=== PATIENT | female | born 1955 | race Caucasian/White ===

== ENCOUNTER 2017-01-08 09:19 | Emergency (ER) | payer OTHER ==
[~2017-01-08] VITALS: Ht 154.9 cm; Wt 84.1 kg
[2017-01-08 10:18] LABS: BASOPHILS % (AUTO) 0.8 % (0.0-2.0); EOSINOPHILS % (AUTO) 2.3 % (1.0-6.0); HEMATOCRIT 39.4 % (36-46); HEMOGLOBIN 12.6 g/dL (12.0-16.0); LYMPHOCYTES # (AUTO) 2.5 K/uL (1.0-4.8); LYMPHOCYTES % (AUTO) 41.1 % (22.0-44.0); MEAN CORPUSCULAR HEMOGLOBIN 24.3 pg (26.0-34.0); MEAN CORPUSCULAR HGB CONC 31.9 G/dL (31.0-37.0); MEAN CORPUSCULAR VOLUME 76 fL (80-100); MONOCYTES # (AUTO) 0.5 K/uL (0.1-1.0); MONOCYTES % (AUTO) 7.8 % (2.0-9.0); NEUTROPHILS # (AUTO) 2.9 K/uL (1.8-7.7); PLATELET COUNT (AUTO) 198 K/uL (150-450); RED BLOOD CELL COUNT(AUTO) 5.17 MIL/uL (4.00-5.20); RED CELL DISTRIBUTION WIDTH 18.6 % (11.5-14.5); WHITE BLOOD COUNT (AUTO) 6.1 K/uL (4.5-11.0)
[2017-01-08 10:20] LABS: RBC MORPHOLOGY COMMENT ABNORMAL RBC MORPH
[2017-01-08] MEDS ORDERED: DILTIAZEM HCL 5 MG/ML 5 ML VIAL IVP ONE (10:30)
[2017-01-08 10:33] LABS: ANION GAP 10 mmol/L (8-16); CALCIUM, TOTAL 9.4 mg/dL (8.8-10.5); CARBON DIOXIDE 29 mmol/L (22-29); CHLORIDE 104 mmol/L (98-107); CREATININE 0.52 mg/dL (0.60-1.30); GLOMERULAR FILTR. RATE CALC > 60 mL/min (>60); POTASSIUM 3.9 mmol/L (3.5-5.1); SODIUM SERUM 143 mmol/L (136-145); UREA NITROGEN, BLOOD 17 mg/dL (7-18)
[2017-01-08 10:39] LABS: ALANINE AMINOTRANSFERASE 24 U/L (12-78); ALBUMIN 4.2 g/dL (3.4-5.0); ASPARTATE AMINOTRANSFERASE 21 U/L (15-37); BILIRUBIN,TOTAL 0.5 mg/dL (0.1-1.0)
[2017-01-08 14:35] VITALS: BP 127/75
== END 2017-01-08 14:45 | disposition home or self-care (01) ==
LOC: EMS 09:22
DX: I48.91 Unspecified atrial fibrillation (principal); Z91.041 Radiographic dye allergy status
CPT/HCPCS: 93005; 99285; J3490

== ENCOUNTER 2017-01-28 15:34 | Emergency (ER) | payer OTHER ==
[~2017-01-28] VITALS: Ht 157.5 cm; Wt 80.9 kg
[2017-01-28] MEDS ORDERED: SODIUM CHLORIDE 0.9% 1,000 ML IV ONE (16:00)
[2017-01-28] MEDS ORDERED: ADENOSINE 3 MG/ML 2 ML VIAL IVP ONE (16:00)
[2017-01-28 16:05] LABS: BASOPHILS # (AUTO) 0.04 K/uL (0.00-0.20); BASOPHILS % (AUTO) 0.5 % (0.0-2.0); EOSINOPHILS # (AUTO) 0.11 K/uL (0.00-0.70); EOSINOPHILS % (AUTO) 1.33 % (1.0-6.0); HEMATOCRIT 35.4 % (36-46); LYMPHOCYTES # (AUTO) 2.3 K/uL (1.0-4.8); LYMPHOCYTES % (AUTO) 28.1 % (22.0-44.0); MEAN CORPUSCULAR HEMOGLOBIN 23.9 pg (26.0-34.0); MEAN CORPUSCULAR VOLUME 77 fL (80-100); MONOCYTES # (AUTO) 0.6 K/uL (0.1-1.0); MONOCYTES % (AUTO) 7.4 % (2.0-9.0); NEUTROPHILS % (AUTO) 62.6 % (40.0-70.0); PLATELET COUNT (AUTO) 172 K/uL (150-450); RED BLOOD CELL COUNT(AUTO) 4.59 MIL/uL (4.00-5.20); RED CELL DISTRIBUTION WIDTH 17.7 % (11.5-14.5)
[2017-01-28] MEDS ORDERED: METF500T4 PO (16:11)
[2017-01-28] MEDS ORDERED: VITAD1000 PO (16:11)
[2017-01-28] MEDS ORDERED: METO50TA12 PO (16:11)
[2017-01-28] MEDS ORDERED: LEVO100 PO (16:11)
[2017-01-28] MEDS ORDERED: APIX5TAB PO (16:11)
[2017-01-28] MEDS ORDERED: ATOR10TA84 PO (16:11)
[2017-01-28] MEDS ORDERED: NITR.4 SL (16:11)
[2017-01-28] MEDS ORDERED: MAGN250T29 PO (16:11)
[2017-01-28] MEDS ORDERED: CALCIUM CARBONATE PO (16:11)
[2017-01-28] MEDS ORDERED: DILTIAZEM HCL 5 MG/ML 5 ML VIAL IVP ONE ×2 (16:21→16:30)
[2017-01-28 16:24] LABS: ANION GAP 11 mmol/L (8-16); CALCIUM, TOTAL 9.1 mg/dL (8.8-10.5); CARBON DIOXIDE 26 mmol/L (22-29); CHLORIDE 107 mmol/L (98-107); CREATININE 0.66 mg/dL (0.60-1.30); GLOMERULAR FILTR. RATE CALC > 60 mL/min (>60); POTASSIUM 3.7 mmol/L (3.5-5.1); SODIUM SERUM 144 mmol/L (136-145); UREA NITROGEN, BLOOD 21 mg/dL (7-18)
[2017-01-28] MEDS ORDERED: CALC-916 PO (16:28)
[2017-01-28 16:30] LABS: ALANINE AMINOTRANSFERASE 20 U/L (12-78); ALBUMIN 3.7 g/dL (3.4-5.0); ASPARTATE AMINOTRANSFERASE 18 U/L (15-37); BILIRUBIN,TOTAL 0.3 mg/dL (0.1-1.0); TOTAL PROTEIN, SERUM 7.1 g/dL (6.4-8.2)
[2017-01-28] MEDS ORDERED: DiphenhydrAMINE HCL 50 MG/ML VIAL IM ONE (16:30)
[2017-01-28] MEDS ORDERED: LORazepam 2 MG/ML VIAL IM ONE (16:30)
[2017-01-28] MEDS ORDERED: HALOPERIDOL LACTATE 5 MG/ML VIAL IM ONE (16:30)
[2017-01-28] MEDS ORDERED: ASPIRIN 81 MG CHEWABLE TABLET PO ONE (17:00)
[2017-01-28 17:14] LABS: RBC MORPHOLOGY COMMENT ABNORMAL RBC MORPH
[2017-01-28 20:36] VITALS: BP 123/72
== END 2017-01-28 20:37 | disposition home or self-care (01) ==
LOC: EMS 15:36
DX: I47.1 Supraventricular tachycardia (principal); M54.2 Cervicalgia; Z91.041 Radiographic dye allergy status
CPT/HCPCS: 36415; 71010; 80053; 82948; 82962; 84484; 85025; 93005; 96361; 96374; 96375; 99285; J0153; J3490; J7030

== ENCOUNTER 2017-02-28 17:36 | Emergency (ER) | payer OTHER ==
[~2017-02-28] VITALS: Ht 154.9 cm; Wt 81.5 kg
[~2017-02-28 17:36] MED LIST: APIX5TAB PO; ATOR10TA84 PO; CALC-916 PO; LEVO100 PO; MAGN250T29 PO; METF500T4 PO; METO-558 PO; NITR.4 SL; VITAD1000 PO
[2017-02-28 17:57] LABS: GLUCOSE,POINT OF CARE 140 MG/DL (70-110)
[2017-02-28 18:03] LABS: BASOPHILS % (AUTO) 0.5 % (0.0-2.0); EOSINOPHILS % (AUTO) 0.2 % (1.0-6.0); HEMATOCRIT 37.3 % (36-46); HEMOGLOBIN 11.9 g/dL (12.0-16.0); LYMPHOCYTES % (AUTO) 23.7 % (22.0-44.0); MEAN CORPUSCULAR HEMOGLOBIN 24.4 pg (26.0-34.0); MEAN CORPUSCULAR HGB CONC 31.9 G/dL (31.0-37.0); MEAN CORPUSCULAR VOLUME 77 fL (80-100); MONOCYTES # (AUTO) 0.6 K/uL (0.1-1.0); MONOCYTES % (AUTO) 7.2 % (2.0-9.0); NEUTROPHILS # (AUTO) 5.9 K/uL (1.8-7.7); NEUTROPHILS % (AUTO) 68.4 % (40.0-70.0); PLATELET COUNT (AUTO) 198 K/uL (150-450); RED BLOOD CELL COUNT(AUTO) 4.86 MIL/uL (4.00-5.20); RED CELL DISTRIBUTION WIDTH 19.3 % (11.5-14.5); WHITE BLOOD COUNT (AUTO) 8.6 K/uL (4.5-11.0)
[2017-02-28 18:16] LABS: ANION GAP 11 mmol/L (8-16); CALCIUM, TOTAL 8.9 mg/dL (8.8-10.5); CARBON DIOXIDE 27 mmol/L (22-29); CHLORIDE 104 mmol/L (98-107); CREATININE 0.69 mg/dL (0.60-1.30); GLOMERULAR FILTR. RATE CALC > 60 mL/min (>60); POTASSIUM 3.7 mmol/L (3.5-5.1); SODIUM SERUM 142 mmol/L (136-145); UREA NITROGEN, BLOOD 20 mg/dL (7-18)
[2017-02-28 18:21] LABS: ALANINE AMINOTRANSFERASE 18 U/L (12-78); ALBUMIN 4.2 g/dL (3.4-5.0); ASPARTATE AMINOTRANSFERASE 14 U/L (15-37); BILIRUBIN,TOTAL 0.3 mg/dL (0.1-1.0); TOTAL PROTEIN, SERUM 7.9 g/dL (6.4-8.2)
[2017-02-28 18:28] LABS: B-TYPE NATRIURETIC PEPTIDE 89 pg/mL (0-100)
[2017-02-28 18:48] LABS: RBC MORPHOLOGY COMMENT ABNORMAL RBC MORPH
[2017-02-28 20:27] VITALS: BP 133/78
== END 2017-02-28 20:56 | disposition home or self-care (01) ==
LOC: EMS 17:39
DX: R07.89 Other chest pain (principal); R00.2 Palpitations; E11.9 Type 2 diabetes mellitus without complications; I47.1 Supraventricular tachycardia; I48.91 Unspecified atrial fibrillation; E78.00 Pure hypercholesterolemia, unspecified; E03.9 Hypothyroidism, unspecified; M19.90 Unspecified osteoarthritis, unspecified site; Z91.041 Radiographic dye allergy status
CPT/HCPCS: 71020; 82962; 93005; 99285